=== PATIENT | male | born 1970 | race Caucasian/White ===

== ENCOUNTER 2016-11-14 11:01 | Emergency (ER) | payer SELFPAY ==
[2016-11-14 11:11] VITALS: RESP 16
[2016-11-14] MEDS ORDERED: ONDANSETRON 4 MG/2 ML VIAL ONE (12:10)
--- NOTE | 2016-11-14 12:19 | EDPHY ---
H & P Stated Complaint: N/V HX of cyclical vomitting Source: Patient Exam Limitations: No limitations - Personal History Current Tetanus/Diphtheria Vaccine: Unsure Current Tetanus Diphtheria and Acellular Pertussis (TDAP): Unsure - Medical/Surgical History Hx Asthma: No Hx Chronic Respiratory Disease: No Hx Diabetes: No Hx Cardiac Disease: No Hx Renal Disease: No Hx Cirrhosis: No Hx Alcoholism: No Hx HIV/AIDS: No Hx Splenectomy or Spleen Trauma: No Other PMH: cyclical vomitting - Social History Smoking Status: Current every day smoker Time Seen by Provider: 11/14/16 12:19 HPI/ROS: HPI: This is a 46-year-old male who presents with Chief Complaint: Nausea and vomiting Location: GI Quality: Nausea and vomiting Duration: Starting this morning, 5-8 hours Signs and Symptoms: No fever, no chills, + generalized abdominal cramping and pain, No diarrhea, no blood in stool, no hematemesis Timing: Sudden, intractable Severity: Moderate Context: Patient is from out of town, smokes marijuana daily, presents with sudden onset of nausea, vomiting greater than 10 times since waking up this morning accompanied by generalized abdominal cramping and pain. Reports that a similar incident had happened approximately 1-2 years ago; treated with Zofran; seen in the ER with negative workup per patient. Unable to obtain records as [place] of [place]. No history of abdominal surgeries. Denies alcohol use. No recent antibiotic use. Does not use NSAIDs regularly. No concern for food poisoning. Family members are well. Modifying Factors: went to urgent care and sent to ER for further evaluation and treatment Comment: ROS: Constitutional: No fever, no chills, no weight loss Eyes: No blurred vision Respiratory: No shortness of breath, no cough Cardiovascular: No chest pain Gastrointestinal: + nausea, + vomiting no diarrhea Genitourinary: No dysuria Extremities: No myalgias Neurologic: No weakness, no numbness Skin: No rashes Hematologic: No bruising, no bleeding MEDICAL/SURGICAL/SOCIAL HISTORY: Denies any abdominal surgical history. (Airam Jackson) - Physical Exam Exam: CONSTITUTIONAL: Adult male who appears older than stated age, anxious, nontoxic in appearance, awake and alert, no obvious distress HEENT: Atraumatic and normocephalic, PERRL, EOMI. Tympanic membranes clear. Oropharynx clear, no exudate and moist pink mucosa. Airway patent. No lymphadenopathy. No meningismus. Cardiovascular: Normal S1/S2, regular rate, regular rhythm, without murmur rub or gallop. PULMONARY/CHEST: Symmetrical and nontender. Clear to auscultation bilaterally Good air movement. No accessory muscle usage. ABDOMEN: Soft, nondistended, mild nonfocal non generalized abdominal tenderness , no rebound, no guarding, no peritoneal signs, no masses or organomegaly. No CVAT. EXTREMITIES: 2/2 pulses, no deformities, no clubbing, no cyanosis or edema. NEUROLOGICAL: no focal neuro deficits. GCS 15. SKIN: Warm and dry, no erythema. no rash. Good capillary refill. (Airam Jackson) Constitutional: Initial Vital Signs Temperature (C) 36.4 C 11/14/16 11:08 Heart Rate 62 11/14/16 11:08 Respiratory Rate 16 11/14/16 11:08 Blood Pressure 114/82 H 11/14/16 11:08 O2 Sat (%) 99 11/14/16 11:08 O2 Delivery Mode Room Air Allergies/Adverse Reactions: No Known Allergies Allergy (Unverified 11/14/16 11:11) Home Medications: Medication Instructions Recorded Ondansetron Odt [Zofran Odt 4 mg 4 mg PO Q4 PRN #12 tab 11/14/16 (*)] Promethazine HCl [Phenergan 25mg 25 mg PO Q8 PRN #12 tab 11/14/16 (*)] Medical Decision Making - Diagnostics Imaging Results: Imaging Impressions Abdomen CT 11/14/16 12:24 Impression: 1. Normal CT abdomen and pelvis with contrast enhancement. 2. No CT evidence of appendicitis, abscess or bowel obstruction. 3. Marked degenerative disk disease at L5-S1. Findings discussed with Airam Jackson PAC at 14:37 hour, 11/14/2016. ED Course/Re-evaluation: Labs, IV fluids, urinalysis, CT abdomen and pelvis scan 1220: Given 2 L normal saline, IV Zofran, IV Ativan, IV promethazine 1320: labs reviewed; no anemia/hyperkalemia/acute kidney injury 1410: Reassessed patient nausea vomiting resolved; passed p.o. trial Called by radiologist and CT scan does not show evidence of appendicitis, colitis, cholecystitis, pancreatitis. (Airam Jackson) Differential Diagnosis: Abdominal pain including but not limited to appendicitis, cholecystitis, gastritis and urinary tract infection. (Airam Jackson) Other Provider: PHYSICIAN DOCUMENTATION: The patient was evaluated and managed by the Physician Housetrailer Servicer and myself. I have reviewed the chart and agree with the findings and plan of care as documented. In addition, I examined the patient myself at 1245: . History confirmed as history of cyclic vomiting, last admitted 1 year ago in [place]. Has been sick just since this morning. Physical findings as follows : Abdomen nontender to palpation.. Patient has a history of appendectomy. I am the secondary supervising physician. (Buddy Morrison) - Data Points Laboratory Results: Laboratory Results 11/14/16 12:50 11/14/16 12:50 11/14/16 11/14/16 12:50 12:50 WBC 8.67 10^3/uL 10^3/uL (3.80-9.50) RBC 4.97 10^6/uL 10^6/uL (4.40-6.38) Hgb 15.3 g/dL g/dL (13.7-17.5) Hct 44.5 % % (40.0-51.0) MCV 89.5 fL fL (81.5-99.8) MCH 30.8 pg pg (27.9-34.1) MCHC 34.4 g/dL g/dL (32.4-36.7) RDW 13.4 % % (11.5-15.2) Plt Count 143 10^3/uL L 10^3/uL (150-400) MPV 11.5 fL fL (8.7-11.7) Neut % (Auto) 88.1 % H % (39.3-74.2) Lymph % (Auto) 7.0 % L % (15.0-45.0) [place] % (Auto) 4.3 % L % (4.5-13.0) Eos % (Auto) 0.0 % L % (0.6-7.6) Baso % (Auto) 0.3 % % (0.3-1.7) Nucleat RBC Rel Count 0.0 % % (0.0-0.2) Absolute Neuts (auto) 7.63 10^3/uL H 10^3/uL (1.70-6.50) Absolute Lymphs (auto) 0.61 10^3/uL L 10^3/uL (1.00-3.00) Absolute Monos (auto) 0.37 10^3/uL 10^3/uL (0.30-0.80) Absolute Eos (auto) 0.00 10^3/uL L 10^3/uL (0.03-0.40) Absolute Basos (auto) 0.03 10^3/uL 10^3/uL (0.02-0.10) Absolute Nucleated RBC 0.00 10^3/uL 10^3/uL (0-0.01) Immature Gran % 0.3 % % (0.0-1.1) Immature Gran # 0.03 10^3/uL 10^3/uL (0.00-0.10) Sodium 142 mEq/L mEq/L (134-144) Potassium 4.1 mEq/L mEq/L (3.5-5.2) Chloride 110 mEq/L mEq/L (97-110) Carbon Dioxide 18 mEq/l L mEq/l (22-31) Anion Gap 14 mEq/L mEq/L (8-16) BUN 15 mg/dL mg/dL (7-23) Creatinine 1.0 mg/dL mg/dL (0.7-1.3) Estimated GFR > 60 Glucose 108 mg/dL H mg/dL (70-100) Calcium 9.2 mg/dL mg/dL (8.5-10.4) Total Bilirubin 1.1 mg/dL mg/dL (0.1-1.4) Conjugated Bilirubin 0.3 mg/dL mg/dL (0.0-0.5) Unconjugated Bilirubin 0.8 mg/dL mg/dL (0.0-1.1) AST 30 IU/L IU/L (17-59) ALT 36 IU/L IU/L (21-72) Alkaline Phosphatase 60 IU/L IU/L (38-126) Total Protein 6.8 g/dL g/dL (6.3-8.2) Albumin 4.3 g/dL g/dL (3.5-5.0) Lipase 60 IU/L IU/L (23-300) Medications Given: Discontinued Medications Sodium Chloride (Ns) 1,000 mls @ 0 mls/hr IV EDNOW ONE; Wide Open PRN Reason: Protocol Stop: 11/14/16 12:21 Last Admin: 11/14/16 12:20 Dose: 1,000 mls Sodium Chloride (Ns) 1,000 mls @ 0 mls/hr IV EDNOW ONE; Wide Open PRN Reason: Protocol Stop: 11/14/16 12:21 Last Admin: 11/14/16 12:49 Dose: 1,000 mls Lorazepam (Ativan Injection) 1 mg IVP EDNOW ONE Stop: 11/14/16 12:25 Last Admin: 11/14/16 12:41 Dose: 1 mg Promethazine HCl (Phenergan) 25 mg IVP EDNOW ONE Stop: 11/14/16 12:24 Last Admin: 11/14/16 12:41 Dose: 25 mg Departure - Departure Disposition: Home, Routine, Self-Care Clinical Impression: Non-intractable cyclical vomiting with nausea, Lumbar degenerative disc disease Condition: Good Instructions: Acute Nausea and Vomiting (ED) Additional Instructions: Take Zofran as needed for nausea vomiting. If nausea and vomiting is not relieved try Phenergan. Eat a bland diet and sip clear liquids until feeling better. Still advance diet as tolerated. Referrals: ALETHA MUNSON [Other] - 2-3 days, if not improved Prescriptions: Ondansetron Odt [Zofran Odt 4 mg (*)] 4 mg PO Q4 PRN #12 tab PRN Reason: Nausea/Vomiting, Use 1st Promethazine HCl [Phenergan 25mg (*)] 25 mg PO Q8 PRN #12 tab PRN Reason: Nausea/Vomiting, Use 2nd
[2016-11-14] MEDS ORDERED: NS 1,000 ML IV ONE ×2 (12:20)
[2016-11-14] MEDS ORDERED: PROMETHAZINE HCL 25 MG/ML INJ IVP ONE (12:23)
[2016-11-14] MEDS ORDERED: LORazepam 2 MG/ML INJ IVP ONE (12:24)
[2016-11-14] MEDS ORDERED: LORazepam 2 MG/ML INJ ONE (12:35)
[2016-11-14 12:58] LABS: % IMMATURE GRANULYOCYTES 0.3 % (0.0-1.1); ABSOLUTE IMMATURE GRANULOCYTES 0.03 10^3/uL (0.00-0.10); ADD DIFF? NO; ADD MORPH? NO; ADD SCAN? NO; ATYPICAL LYMPHOCYTE FLAG 0 (0-99); FRAGMENT RBC FLAG 0 (0-99); HEMATOCRIT 44.5 % (40.0-51.0); HEMOGLOBIN 15.3 g/dL (13.7-17.5); LEFT SHIFT FLG 0 (0-99); LIPEMIA HEMOLYSIS FLAG 90 (0-99); MEAN CELL HEMOGLOBIN 30.8 pg (27.9-34.1); MEAN CELL HEMOGLOBIN CONCENTR. 34.4 g/dL (32.4-36.7); MEAN CELL VOLUME 89.5 fL (81.5-99.8); MEAN PLATELET VOLUME 11.5 fL (8.7-11.7); PLATELET CLUMPS FLAG 30 (0-99); PLATELET COUNT 143 10^3/uL (150-400); RED BLOOD CELL COUNT 4.97 10^6/uL (4.40-6.38); RED CELL DISTRIBUTION WIDTH 13.4 % (11.5-15.2)
[2016-11-14 13:16] LABS: ALANINE AMINOTRANSFERASE 36 IU/L (21-72); ALBUMIN 4.3 g/dL (3.5-5.0); ALKALINE PHOSPHATASE 60 IU/L (38-126); ANION GAP 14 mEq/L (8-16); ASPARTATE AMINOTRANSFERASE 30 IU/L (17-59); BILIRUBIN,TOTAL 1.1 mg/dL (0.1-1.4); BILIRUBIN-CONJUGATED 0.3 mg/dL (0.0-0.5); BILIRUBIN-UNCONJUGATED 0.8 mg/dL (0.0-1.1); CALCIUM 9.2 mg/dL (8.5-10.4); CARBON DIOXIDE 18 mEq/l (22-31); CHLORIDE 110 mEq/L (97-110); GLOMERULAR FILTRATION RATE > 60; GLUCOSE 108 mg/dL (70-100); POTASSIUM 4.1 mEq/L (3.5-5.2); SODIUM 142 mEq/L (134-144); TOTAL PROTEIN 6.8 g/dL (6.3-8.2)
[2016-11-14 15:00] VITALS: BP 124/73; PULSE 69; O2SAT 95
[2016-11-14 15:04] VITALS: TEMP 98.6
== END 2016-11-14 15:03 | disposition home or self-care (01) ==
DX: G43.A0 Cyclical vomiting, in migraine, not intractable (principal); M51.36 Other intervertebral disc degeneration, lumbar region; F17.200 Nicotine dependence, unspecified, uncomplicated; E86.9 Volume depletion, unspecified
CPT/HCPCS: 96374; J2060; J2405; J2550

== ENCOUNTER 2017-01-08 23:56 | Emergency (ER) | payer SELFPAY ==
[2017-01-09 00:01] VITALS: TEMP 97.7
[2017-01-09] MEDS ORDERED: ONDANSETRON 4 MG/2 ML VIAL IVP ONE (00:10)
[2017-01-09] MEDS ORDERED: NS 1,000 ML IV ONE ×3 (00:10→01:55)
[2017-01-09 00:49] LABS: PLATELET COUNT 187 10^3/uL (150-400)
[2017-01-09] MEDS ORDERED: HALOPERIDOL LACT 5 MG/ML INJ IVP ONE (00:59)
[2017-01-09] MEDS ORDERED: LORazepam 2 MG/ML INJ IVP ONE (01:41)
--- NOTE | 2017-01-09 02:02 | EDPHY ---
H & P Stated Complaint: vomiting Time Seen by Provider: 01/09/17 00:29 HPI/ROS: HPI The patient presents with nausea and vomiting which have been present for the last 2 days which started slowly and got progressively worse. He has been using Zofran without much improvement in his symptoms. He has not been able to take anything by mouth for the last 1 day. He denies any abdominal pain. He generally feels fatigued. He has a history of what he describes as cyclic vomiting syndrome and was last in the ER few weeks ago for this. He is visiting from [place] but says he has had many visits to the emergency department there. He has been evaluated by Gastroenterology and says that he had an endoscopy which is normal. He is a daily marijuana user for the last 30 years. REVIEW OF SYSTEMS Constitutional: No fever, no chills. Eyes: No discharge. ENT: No sore throat. Cardiovascular: No chest pain, no palpitations. Respiratory: No cough, no shortness of breath. Gastrointestinal: No abdominal pain, no vomiting. Genitourinary: No hematuria. Musculoskeletal: No back pain. Skin: No rashes. Neurological: No headache. PMHx: History of cyclic vomiting Soc Hx: Visiting his girlfriend in [place], from [place], chronic marijuana use PHYSICAL General Appearance: Alert, no distress Eyes: Pupils equal and round no pallor or injection ENT, Mouth: Mucous membranes dry Respiratory: There are no retractions, lungs are clear to auscultation Cardiovascular: Regular rate and rhythm Gastrointestinal: Abdomen is soft and non-tender, no masses, bowel sounds normal Neurological: A&O, moves all extremities Skin: Warm and dry, no rashes Musculoskeletal: Neck is supple non tender Extremities: symmetrical, full range of motion Psychiatric: Patient is oriented X 3, there is no agitation Source: Patient, Old records Exam Limitations: No limitations - Personal History Current Tetanus/Diphtheria Vaccine: Yes - Medical/Surgical History Hx Asthma: No Hx Chronic Respiratory Disease: No Hx Diabetes: No Hx Cardiac Disease: No Hx Renal Disease: No Hx Cirrhosis: No Hx Alcoholism: No Hx HIV/AIDS: No Hx Splenectomy or Spleen Trauma: No Other PMH: PMHx: cyclical vomitting. PSHx: R knee - Social History Smoking Status: Current every day smoker Constitutional: Initial Vital Signs Temperature (C) 36.5 C 01/08/17 23:59 Heart Rate 104 H 01/08/17 23:59 Respiratory Rate 18 01/08/17 23:59 Blood Pressure 120/90 H 01/08/17 23:59 O2 Sat (%) 91 L 01/08/17 23:59 O2 Delivery Mode Room Air Allergies/Adverse Reactions: No Known Allergies Allergy (Unverified 11/14/16 11:11) Home Medications: Medication Instructions Recorded GABAPENTIN 01/08/17 Medical Decision Making Differential Diagnosis: This is a 47-year-old male with known history of cyclic vomiting syndrome also chronic daily marijuana use for 30 years, who presents with 2 days of nausea and vomiting. On exam, he appears dehydrated and is actively retching. Differential diagnosis includes cyclic vomiting syndrome, dehydration, cannabinoid hyperemesis syndrome. In the emergency department, patient was given a total of 3 L of normal saline for presumed volume depletion. He had basic labs checked which did reveal an anion gap acidosis and hemoconcentration. He eventually improved after receiving Zofran, Haldol, Ativan. He will be discharged home. I did discuss with him and his girlfriend cannabinoid hyperemesis syndrome. I have provided them some written information on this to look at. - Data Points Laboratory Results: Laboratory Results 01/09/17 00:10 01/09/17 00:10 Medications Given: Discontinued Medications Haloperidol Lactate (Haldol Injection) 2.5 mg IVP EDNOW ONE Stop: 01/09/17 01:00 [facility] Last Admin: 01/09/17 01:02 MDT Dose: 2.5 mg Sodium Chloride (Ns) 1,000 mls @ 0 mls/hr IV ONCE ONE; Wide Open PRN Reason: Protocol Stop: 01/09/17 00:11 Last Admin: 01/09/17 00:14 Dose: 1,000 mls Sodium Chloride (Ns) 1,000 mls @ 0 mls/hr IV EDNOW ONE; Wide Open PRN Reason: Protocol Stop: 01/09/17 00:54 Last Admin: 01/09/17 00:57 Dose: 1,000 mls Sodium Chloride (Ns) 1,000 mls @ 0 mls/hr IV ONCE ONE; Wide Open PRN Reason: Protocol Stop: 01/09/17 01:56 MST Last Admin: 01/09/17 01:56 MDT Dose: 1,000 mls Lorazepam (Ativan Injection) 1 mg IVP EDNOW ONE Stop: 01/09/17 01:42 MST Last Admin: 01/09/17 01:50 MDT Dose: 1 mg Ondansetron HCl (Zofran) 4 mg IVP EDNOW ONE Stop: 01/09/17 00:11 Last Admin: 01/09/17 00:14 Dose: 4 mg Promethazine HCl (Phenergan 25 Mg Prepack #4) 1 btl TAKEHOME EDNOW ONE Stop: 01/09/17 02:09 Last Admin: 01/09/17 02:30 Dose: 1 btl Departure - Departure Disposition: Home, Routine, Self-Care Clinical Impression: Vomiting, Cyclic vomiting syndrome Condition: Good Instructions: Promethazine (By injection), Acute Nausea and Vomiting (ED) Additional Instructions: Please return to the emergency department if your worse in any way. You can take Phenergan 25 mg by mouth every 6 hours as needed for vomiting. Referrals: ALETHA MUNSON [Other] - As per Instructions
[2017-01-09] MEDS ORDERED: PROMETHAZINE 25 MG PREPACK #4 BTL TAKEHOME ONE (02:08)
[2017-01-09 02:33] VITALS: BP 115/75; PULSE 80; RESP 16; O2SAT 97
== END 2017-01-09 02:33 | disposition home or self-care (01) ==
DX: G43.A0 Cyclical vomiting, in migraine, not intractable (principal); F17.200 Nicotine dependence, unspecified, uncomplicated; E86.9 Volume depletion, unspecified
CPT/HCPCS: 96374; J2060; J2405